=== PATIENT | male | born 1985 | race African-American/Black ===

== ENCOUNTER 2021-04-08 22:33 | Emergency (ER) | payer BC ==
[~2021-04-08] VITALS: Ht 177.8 cm; Wt 68.0 kg
[2021-04-08] MEDS ORDERED: XANAX2 MG PO (22:45)
[2021-04-08 23:08] LABS: HEMATOCRIT 50.3 % (42.0-52.0); HEMOGLOBIN 16.9 gm/dL (14.0-18.0); MCH 30.5 pg (26.0-34.0); MCHC 33.6 g/dL (28.0-37.0); MCV 90.8 fL (80.0-100.0); MPV 7.8 fl. (7.2-11.1); NUCLEATED RBCS 0 /100WBC; PLATELET COUNT* 305 thou/uL (150-400); RBC 5.54 mil/uL (4.50-6.00); RDW-CV 14.9 % (10.5-14.5); WBC 30.6 thou/uL (4.0-11.0)
[2021-04-08 23:18] LABS: INR 1.2; PROTIME 12.9 Seconds (9.20-11.50)
[2021-04-08 23:26] LABS: MAGNESIUM 3.4 mg/dL (1.8-2.4)
[2021-04-08 23:53] LABS: URINE BILIRUBIN NEGATIVE (Negative); URINE BLOOD 3+ (Negative); URINE CLARITY CLEAR; URINE COLOR DARK YELLOW; URINE GLUCOSE-RANDOM NEGATIVE (Negative); URINE KETONES 1+ (Negative); URINE LEUKOCYTES-REFLEX NEGATIVE (Negative); URINE NITRITE-REFLEX NEGATIVE (Negative); URINE PROTEIN TRACE (Negative); URINE SPECIFIC GRAVITY 1.025 (1.005-1.030); URINE UROBILINOGEN 0.2 E.U./dl (0.2-1.0)
[2021-04-09 00:04] LABS: ABSOLUTE LYMPHOCYTES 1.8 thou/uL (0.8-5.3); ABSOLUTE MONOCYTES 0.9 thou/uL (0.0-1.2); ABSOLUTE NEUTROPHILS 27.8 thou/uL (1.6-8.1); CALCIUM 8.7 mg/dL (8.5-10.1); CREATININE 2.9 mg/dL (0.6-1.3); POTASSIUM 3.6 mmol/L (3.5-5.1)
[2021-04-09 00:05] LABS: LARGE PLATELETS OCCASIONAL; PLATELET ESTIMATE ADEQUATE
[2021-04-09 00:42] LABS: AMP/METHAMP Negative (Negative); BARBITURATES Negative (Negative); BENZODIAZEPINES Negative (Negative); COCAINE Negative (Negative); METHADONE Negative (Negative); OPIATES Negative (Negative); PCP Negative (Negative); THC POSITIVE (Negative)
[2021-04-09 00:50] LABS: BE 1.4 mmol/L (-2 to +3); PCO2 28.3 mmHg (35.0-45.0); pH 7.522 (7.340-7.450)
[2021-04-09 00:53] LABS: PO2 42.3 mmHg (75.0-100.0)
[2021-04-09 00:57] LABS: HYALINE CASTS 4-10 Moderate /LPF (None Seen); SQUAMOUS NONE SEEN /LPF (0-3)
[2021-04-09 00:58] LABS: BACTERIA-REFLEX 1-9 Few /HPF (None Seen); URINE RBC 0-2 Rare /HPF (0-2); URINE WBC-REFLEX 0-5 Rare /HPF (0-5)
[2021-04-09 00:59] LABS: AMORPHOUS URATES Few /LPF (None Seen)
[2021-04-09 04:25] LABS: PCO2 32.1 mmHg (35.0-45.0); PO2 93.1 mmHg (75.0-100.0); pH 7.435 (7.340-7.450)
[2021-04-09 05:47] VITALS: BP 118/82
--- NOTE | 2021-04-09 12:34 | EKG ---
[place] [address] ELECTROCARDIOGRAM REPORT Name: SARAH DAWN Room: 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1985 Requested By: Zahra Velasquez Order Number: [id number] MD: Jorden Busby Measurements Intervals [place] Rate: 103 P: 86 CT: 104 QRS: 87 QRSD: 84 T: 71 QT: 328 QTc: 430 Interpretive Statements Sinus tachycardia Biatrial enlargement High ST segment takeoff over the anterior precordium; this is probably a normal variant but ischemia must be considered No previous ECG available for comparison Electronically Signed On 04-09-2021 12:34:27 CDT by Jorden Busby [email or web address] <ELECTRONICALLY SIGNED> By: Jorden Busby MD, [facility] 04/09/21 1234 36 36 Jorden Busby MD, [facility] /EPI
--- NOTE | 2021-04-09 12:35 | EKG ---
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: : 1985 Requested By: Zahra Velasquez Order Number: [id number] MD: Jorden Busby Measurements Intervals [place] Rate: 112 P: 83 [place]: 80 QRS: 89 QRSD: 81 T: 60 QT: 415 QTc: 567 Interpretive Statements Sinus tachycardia Biatrial enlargement RSR' in V1 or V2, probably normal variant ST depr, consider ischemia, inferior leads Borderline ST elevation, anterior leads Prolonged QT interval Compared to ECG 04/08/2021 22:37:19 RSR' in V1 or V2 now present Possible ischemia now present ST (T wave) deviation now present Prolonged QT interval now present Myocardial infarct finding no longer present Electronically Signed On 04-09-2021 12:35:19 CDT by Jorden Busby [email or web address] <ELECTRONICALLY SIGNED> By: Jorden Busby MD, [facility] 04/09/21 1235 002 Jorden Busby MD, [facility] /EPI
== END 2021-04-09 05:49 ==
LOC: M.ERS 22:33
PROVIDERS: Emergency Medicine
DX: A41.9 Sepsis, unspecified organism (principal); Z20.822 Contact with and (suspected) exposure to COVID-19; N19 Unspecified kidney failure; R41.82 Altered mental status, unspecified; E87.1 Hypo-osmolality and hyponatremia; J18.9 Pneumonia, unspecified organism; M62.82 Rhabdomyolysis